=== PATIENT | male | born 1945 | race Caucasian/White ===

== ENCOUNTER → 2016-08-14 | Outpatient (CLI) | payer MEDICARE ==
[2016-08-14 16:15] LABS: ABSOLUTE LYMPHOCYTES (AUTO) 0.4 10^3/uL (0.5-4.7); ABSOLUTE MONOCYTES (AUTO) 0.2 10^3/uL (0.1-1.4); ABSOLUTE NEUT (AUTO) 1.5 10^3/uL (1.7-8.2); BASOPHILS % (AUTO) 0.9 % (0-2); EOSINOPHILS % (AUTO) 0.6 % (0-6); HEMATOCRIT 33.2 % (37.9-51.0); HEMOGLOBIN 11.7 g/dL (13.5-17.0); HGB HCT DIFFERENCE 1.9; LYMPHOCYTES % (AUTO) 17.2 % (13-45); MEAN CORPUSCULAR HEMOGLOBIN 31.4 pg (27.0-33.4); MEAN CORPUSCULAR HGB CONC 35.1 g/dL (32.0-36.0); MEAN CORPUSCULAR VOLUME 89 fl (80-97); RED BLOOD COUNT 3.71 10^6/uL (4.35-5.55); RED CELL DISTRIBUTION WIDTH 14.6 % (11.5-14.0); SEGMENTED NEUTROPHILS % (AUTO) 73.3 % (42-78); WHITE BLOOD COUNT 2.1 10^3/uL (4.0-10.5)
[2016-08-14 16:40] LABS: ALANINE AMINOTRANSFERASE 40 U/L (21-72); ALBUMIN 3.5 g/dL (3.5-5.0); ALKALINE PHOSPHATASE 67 U/L (38-126); ANION GAP 10 (5-19); ASPARTATE AMINO TRANSFERASE 41 U/L (17-59); BILIRUBIN,DIRECT 0.3 mg/dL (0.0-0.4); BILIRUBIN,TOTAL 1.1 mg/dL (0.2-1.3); BLOOD UREA NITROGEN 17 mg/dL (7-20); CALCIUM 8.7 mg/dL (8.4-10.2); CARBON DIOXIDE 27 mmol/L (22-30); CHLORIDE 102 mmol/L (98-107); GLUCOSE 89 mg/dL (75-110); POTASSIUM 3.8 mmol/L (3.6-5.0); SODIUM 139.3 mmol/L (137-145); TOTAL PROTEIN 6.4 g/dL (6.3-8.2)
== END ==
LOC: OD 15:26
PROVIDERS: ATTEND Family Medicine
DX: R68.83 Chills (without fever) (principal)
CPT/HCPCS: 36415; 80053; 85025

== ENCOUNTER → 2019-03-17 | Outpatient (CLI) | payer MEDICARE ==
--- NOTE | 2019-03-17 09:53 | RADIOLOGY REPORT (SQ) ---
EXAM DESCRIPTION: U/S ABDOMEN LIMITED W/O DOP COMPLETED DATE/TIME: 03/17/2019 9:38 am REASON FOR STUDY: R94.5 ABNORMAL RESULTS OF LIVER FUNCTION STUDIES R94.5 ABNORMAL RESULTS OF LIVER FUNCTION STUDIES COMPARISON: 06/27/2015 TECHNIQUE: Dynamic and static grayscale images acquired of the abdomen and recorded on PACS. Additio nal selected color Doppler and spectral images recorded. Note: Study does not meet criteria for complete doppler/duplex scan LIMITATIONS: None. FINDINGS: PANCREAS: Obscured by overlying bowel gas. LIVER: Heterogeneous echotexture. No focal masses. Normal size. LIVER VASCULATURE: Normal directional flow of the main portal vein and hepatic veins. GALLBLADDER: Prior cholecystectomy. ULTRASOUND-DETECTED RIVERA'S SIGN: Negative. INTRAHEPATIC DUCTS AND COMMON DUCT: CBD and intrahepatic ducts normal caliber. No filling defects. INFERIOR VENA CAVA: Not visualized. AORTA: No aneurysm. RIGHT KIDNEY:Normal size. Normal echogenicity. No solid or suspicious masses. No hydronephrosis. No c alcifications. PERITONEAL AND PLEURAL SPACES: No ascites or effusions. OTHER: No other significant finding. IMPRESSION: Mild heterogeneous attenuation throughout the liver which is nonspecific. No other sign ificant findings. TECHNICAL DOCUMENTATION: JOB ID: [id number] [employer]- All Rights Reserved Reading location - IP/workstation name: [email or web address]
== END ==
LOC: RAD 08:07
PROVIDERS: ATTEND Family Medicine
DX: R94.5 Abnormal results of liver function studies (principal)
CPT/HCPCS: 76705

== ENCOUNTER 2019-07-05 22:31 | Emergency (ER) | payer OTHER, MEDICARE ==
--- NOTE | 2019-07-05 22:49 | ER Document Report ---
ED Medical Screen (RME) - General Chief Complaint: Fall Injury Stated Complaint: FALL/RIGHT ARM INJURY/ON BLOOD THINNERS Time Seen by Provider: 07/05/19 22:42 Primary Care Provider: TANYA CARTER MD [Primary Care Provider] - Follow up as needed Notes: Patient is a 73-year-old male who presents to the emergency department with a chief complaint of bleeding to his right forearm. Yesterday he tripped over a step and scraped his arm. He is an LVAD patient. Patient is currently on Coumadin. His INR was 1.8 yesterday via his home monitor and the increased his Coumadin, subsequently causing him to bleed more from his right forearm. Patient and state that his forearm continues to bleed. After increasing his Coumadin yesterday, his INR is still 1.8 today. Denies any confusion, weakness, or loss of coordination. Exam: Skin tear noted to right forearm. LVAD in place. I have greeted and performed a rapid initial assessment of this patient. A comprehensive ED assessment and evaluation of the patient, analysis of test results and completion of medical decision making process will be conducted by an additional ED providers. TRAVEL OUTSIDE OF THE [place] IN LAST 30 DAYS: No - Related Data Allergies/Adverse Reactions: promethazine HCl [From Phenergan] Allergy (Intermediate, Verified 01/12/14 05:05) Hypotension JOSÉ MIGUEL Inhibitors [José Miguel Inhibitors] Allergy (Verified 01/12/14 01:42) ACEINHIBITORS [JOSÉ MIGUEL Inhibitors] Adverse Reaction (Intermediate, Verified 01/12/14 05:05) Past Medical History - Past Medical History Cardiac Medical History: Reports: Hx Congestive Heart Failure, Hx Coronary Artery Disease, Hx Heart Attack - 1982, Hx Hypertension Endocrine Medical History: Reports: Hx Diabetes Mellitus Type 2 Past Surgical History: Reports: Hx Appendectomy, Hx Cardiac Surgery - LVAD, Hx Cholecystectomy, Hx Internal Defibrillator, Hx Orthopedic Surgery - bilateral shoulder - Immunizations Hx Diphtheria, Pertussis, Tetanus Vaccination: Yes Physical Exam - Vital signs Vitals: Temp Pulse Resp BP Pulse Ox 97.4 F 55 L 16 101/63 97 07/05/19 22:37 07/05/19 22:37 07/05/19 22:37 07/05/19 22:37 07/05/19 22:37 Course - Vital Signs Vital signs: Temp Pulse Resp BP Pulse Ox 97.4 F 55 L 16 101/63 97 07/05/19 22:37 07/05/19 22:37 07/05/19 22:37 07/05/19 22:37 07/05/19 22:37 Doctor's Discharge - Discharge Referrals: TANYA CARTER MD [Primary Care Provider] - Follow up as needed
[2019-07-05 23:07] LABS: HEMATOCRIT 37.4 % (37.9-51.0); HEMOGLOBIN 12.8 g/dL (13.5-17.0); MEAN CORPUSCULAR HGB CONC 34.3 g/dL (32.0-36.0); MEAN CORPUSCULAR VOLUME 91 fl (80-97); PLATELET COUNT 134 10^3/uL (150-450); RED BLOOD COUNT 4.13 10^6/uL (4.35-5.55); RED CELL DISTRIBUTION WIDTH 14.8 % (11.5-14.0); WHITE BLOOD COUNT 3.5 10^3/uL (4.0-10.5)
[2019-07-05 23:18] LABS: INTERNATIONAL RATION (INR) 1.66; PROTHROMBIN TIME 19.8 SEC (11.4-15.4)
[2019-07-06 01:24] VITALS: BP 105/63
--- NOTE | 2019-07-06 01:46 | ER Document Report ---
ED General - General Chief Complaint: Skin Tear(s) Stated Complaint: FALL/RIGHT ARM INJURY/ON BLOOD THINNERS Time Seen by Provider: 07/05/19 22:42 Primary Care Provider: TANYA CARTER MD [Primary Care Provider] - Follow up as needed TRAVEL OUTSIDE OF THE [place] IN LAST 30 DAYS: No - HPI Notes: Patient is a 73-year-old male who presents to the emergency department for evaluation. He was walking up into the laundry room, tripped, fell and struck his right forearm. He sustained 2 skin tears. He is on Coumadin. He states that they just keep bleeding. They bleed every time he changes the bandages. He was given advised by the pharmacist, which helped with one area, but he continues to have bleeding, so they present to the ER for further evaluation. He is on Coumadin because of his LVAD. He has an INR check on Mondays from home. He denies any other injury from the fall. Did not hit his head, no loss of consciousness, no neck or back pain. - Related Data Allergies/Adverse Reactions: promethazine HCl [From Phenergan] Allergy (Intermediate, Verified 01/12/14 05:05) Hypotension JOSÉ MIGUEL Inhibitors [José Miguel Inhibitors] Allergy (Verified 01/12/14 01:42) ACEINHIBITORS [JOSÉ MIGUEL Inhibitors] Adverse Reaction (Intermediate, Verified 01/12/14 05:05) Home Medications: lantus, metoprolol, warfarin, aspirin, glimepiride, demadex, alfuzosin, centrum silver, vit d3, crestor, vit b12, pacerone, finasteride, mag oxide Past Medical History - General Information source: Patient - Social History Smoking Status: Former Smoker Chew tobacco use (# tins/day): No Frequency of alcohol use: None Drug Abuse: None Family History: Reviewed & Not Pertinent Patient has suicidal ideation: No Patient has homicidal ideation: No - Past Medical History Cardiac Medical History: Reports: Hx Congestive Heart Failure, Hx Coronary Ar zoey Disease, Hx Heart Attack - 1982, Hx Hypertension Endocrine Medical History: Reports: Hx Diabetes Mellitus Type 2 Past Surgical History: Reports: Hx Appendectomy, Hx Cardiac Surgery - LVAD, Hx Cholecystectomy, Hx Internal Defibrillator, Hx Orthopedic Surgery - bilateral shoulder - Immunizations Hx Diphtheria, Pertussis, Tetanus Vaccination: Yes Hx Pneumococcal Vaccination: 05/04/09 Review of Systems - Review of Systems Skin: See HPI Hematologic/Lymphatic: See HPI -: Yes All other systems reviewed and negative Physical Exam - Vital signs Vitals: Temp Pulse Resp BP Pulse Ox 97.4 F 55 L 16 101/63 97 07/05/19 22:37 07/05/19 22:37 07/05/19 22:37 07/05/19 22:37 07/05/19 22:37 - Notes Notes: This is a very pleasant 73-year-old male who appears his stated age in no acute distress. Physical exam is limited to the area of chief complaint. Examination of the right forearm yields bandages in place over the distal forearm. Removal of these bandages and gauze reveals 2 skin tears, one covered with black styptic powder, dried, and is achieved hemostasis. The more proximal of the skin tears is 2 x 2 cm, active bleeding noted, but no deep laceration. Neurovascularly intact distally. Course - Re-evaluation Re-evalutation: 07/06/19 01:53 Patient presents to the emergency department for evaluation. He had concerns that he has lost a significant amount of blood. His hemoglobin is actually higher than it has been in some time. His INR is only 1.66. The area was cleansed and redressed with Gelfoam in place. They were given instructions on dressing and instructions to follow-up closely with primary care. Return to the ED with worsening or new concerning symptoms of any sort. - Vital Signs Vital signs: Temp Pulse Resp BP Pulse Ox 97.5 F 50 L 16 105/63 98 07/06/19 01:23 07/06/19 01:23 07/06/19 01:23 07/06/19 01:23 07/06/19 01:23 - Laboratory Result Diagrams: 07/05/19 22:50 Laboratory results interpreted by me: 07/05/19 07/05/19 22:50 22:50 WBC 3.5 L RBC 4.13 L Hgb 12.8 L Hct 37.4 L RDW 14.8 H Plt Count 134 L PT 19.8 H Discharge - Discharge Clinical Impression: Skin tear of right upper extremity Clinical Impression: (Ruled Out): Skin tear of left upper extremity Condition: Stable Disposition: HOME, SELF-CARE Instructions: Skin Tear ([facility]) Additional Instructions: Keep bandage in place for 48 hours unless it becomes soiled, or you develop increased pain, bleedthrough, fever, vomiting, or numbness. When you do remove it soaked the bandage well in clean soap and water. Return to the emergency department with worsening or new concerning symptoms of any sort. Referrals: TANYA CARTER MD [Primary Care Provider] - Follow up as needed
== END 2019-07-06 01:53 | disposition home or self-care (01) ==
LOC: ER 22:31
DX: S51.811A Laceration without foreign body of right forearm, initial encounter (principal); W10.9XXA Fall (on) (from) unspecified stairs and steps, initial encounter; Y93.89 Activity, other specified; W22.09XA Striking against other stationary object, initial encounter; E11.9 Type 2 diabetes mellitus without complications; I25.10 Atherosclerotic heart disease of native coronary artery without angina pectoris; I11.0 Hypertensive heart disease with heart failure; I50.9 Heart failure, unspecified; Z95.811 Presence of heart assist device; Z79.01 Long term (current) use of anticoagulants; Z79.4 Long term (current) use of insulin; Z79.899 Other long term (current) drug therapy; Z79.82 Long term (current) use of aspirin; Z87.891 Personal history of nicotine dependence; Z88.8 Allergy status to other drugs, medicaments and biological substances
CPT/HCPCS: 36415; 85027; 85610; 85730; 99283